=== PATIENT | male | born 1965 | race Caucasian/White ===

== ENCOUNTER 2021-06-27 08:00 | Day surgery (SDC) | payer OTHER, SELFPAY ==
[~2021-06-27] VITALS: Ht 175.3 cm; Wt 99.8 kg
[2021-06-27] MEDS ORDERED: fentaNYL citrate 0.05 MG/ML VIAL ONE (09:45)
[2021-06-27] MEDS ORDERED: diphenhydrAMINE 50 MG/ML VIAL ONE (09:45)
[2021-06-27] MEDS ORDERED: MIDAZOLAM 2 MG/2 ML VIAL ONE (09:46)
[2021-06-27] MEDS ORDERED: LIDOCAINE 2% 100 MG/5 ML UJET TP ONE ×2 (09:46→10:00)
[2021-06-27] MEDS ORDERED: MIDAZOLAM 2 MG/2 ML VIAL IVP ONE ×2 (10:00→10:05)
[2021-06-27] MEDS ORDERED: fentaNYL citrate 0.05 MG/ML VIAL IVP ONE (10:00)
== END 2021-06-27 11:06 | disposition home or self-care (01) ==
LOC: MDS 08:00 → MMU 08:01 → MDS 11:06
PROVIDERS: ATTEND Internal Medicine Gastroenterology
DX: Z12.11 Encounter for screening for malignant neoplasm of colon (principal); I10 Essential (primary) hypertension; E11.9 Type 2 diabetes mellitus without complications; E78.00 Pure hypercholesterolemia, unspecified; F17.210 Nicotine dependence, cigarettes, uncomplicated; Z79.84 Long term (current) use of oral hypoglycemic drugs; Z79.82 Long term (current) use of aspirin; Z79.899 Other long term (current) drug therapy; Z20.822 Contact with and (suspected) exposure to COVID-19
CPT/HCPCS: 45378; 82948; 87426; J2250; J3010; J1200